=== PATIENT | female | born 1960 ===

== ENCOUNTER 2020-06-09 11:13 | Outpatient (REF) | payer MEDICARE, MEDICAID, SELFPAY ==
--- NOTE | 2020-06-09 11:21 | XR_ITS ---
EXAMINATION: XR HIP WITH PELVIS, RIGHT CLINICAL INFORMATION: Pain in right hip. COMPARISON: 03/05/2020, 01/28/2020. TECHNIQUE: Frontal view of the pelvis. Two views of the right hip. FINDINGS: PELVIS: There is a prosthetic proximal right femur. No change in position. No suspicious abnormality in the left hip. RIGHT HIP: There is indistinctness associated with a proximal femoral fracture. There is amorphous new bone formation associated with the region of the greater trochanter and subtrochanteric femur medially. No change in position of the fracture fragments. XR/XR hip RT w PEL1V IMPRESSION: Previous instrumentation. Healing fracture. The fracture lucency is still visualized.
== END 2020-06-09 11:14 | disposition home or self-care (01) ==
LOC: HO.HOSX 11:13
PROVIDERS: PCP Nurse Practitioner Pediatrics; Referring Provider Nurse Practitioner Pediatrics; Visit Provider Orthopaedic Surgery
DX: M25.551 Pain in right hip (principal); Z96.641 Presence of right artificial hip joint
CPT/HCPCS: 73502; 99212

== ENCOUNTER 2020-07-20 17:50 | Emergency (ER) | payer MEDICARE, MEDICAID, SELFPAY ==
[2020-07-20 17:57] VITALS: BP 140/69; PULSE 60; RESP 16; TEMP 36.8; O2SAT 98; BMI 29.0
--- NOTE | 2020-07-20 19:36 | US_ITS ---
EXAMINATION: US VENOUS ULTRASOUND WITH DOPPLER LOWER EXTREMITY, RIGHT CLINICAL INFORMATION: Postoperative pain and swelling COMPARISON: Right lower extremity ultrasound 12/11/2019 TECHNIQUE: Ultrasound of the deep veins is performed from the hip to the calf with compression sonography and color and pulse Doppler assessment. Spectral analysis with color-flow imaging is performed. FINDINGS: There is normal venous compression and respiratory variation and augmented flow. The visualized common femoral vein, superficial femoral vein, profunda femoral vein, popliteal vein, and the trifurcation region shows no evidence of deep venous thrombosis. There is no significant popliteal fossa cyst. The contralateral left common femoral vein appears normal with normal respiratory variation and flow. If the patient's symptoms persist, followup ultrasound in 5 days 7 days might be of value to exclude proximal propagation from a non-visualized calf vein. US/US venous duplex LE RT IMPRESSION: No DVT demonstrated in the right lower extremity.
[2020-07-20 20:46] VITALS: BP 146/65; PULSE 56; RESP 16
[2020-07-20] MEDS: 0.9 % Sodium Chloride 1,000 ML 999 ML IV (20:47)
[2020-07-20] MEDS: Morphine Sulfate 4 MG/ML CARTRIDGE IVPUSH (20:50)
[2020-07-20] MEDS: ondansetron HCL 4 MG/2 ML VIAL IVPUSH (20:50)
[2020-07-20 20:52] LABS: Basophils Percent Auto 0.2 % (0-2); Eosinophils Absolute Auto 0.1 X10*3/uL (0.0-0.4); Eosinophils Percent Auto 1.2 % (0-4); Hematocrit 32.3 % (37-47); Hemoglobin 10.4 g/dl (12.0-16.0); Imm Gran Abs Auto 0.02 X10*3/uL (0.00-0.03); Imm Gran Pct Auto 0.3 % (0.0-0.4); Lymphocytes Absolute Auto 1.6 X10*3/uL (1.2-4.9); Lymphocytes Percent Auto 24.5 % (20-40); MANUAL DIFF FLAG NO; Mean Corpuscular HGB Conc 32.2 g/dl (31.0-35.0); Mean Corpuscular Hemoglobin 31.8 pg (27.0-33.0); Mean Corpuscular Volume 98.8 fL (80-98); Mean Platelet Volume 8.5 fL (9.4-12.3); Monocytes Absolute Auto 0.6 X10*3/uL (0.1-1.2); Monocytes Percent Auto 9.6 % (2-11); Neutrophils Absolute Auto 4.2 X10*3/uL (2.0-8.3); Neutrophils Percent Auto 64.2 % (45-73); Platelet Count 253 X10*3/uL (160-400); Red Blood Count 3.27 X10*6/uL (4.20-5.50); Red Cell Distribution Width 13.5 % (11.0-16.0); White Blood Count 6.5 X10*3/uL (4.8-10.8)
[2020-07-20 20:58] LABS: INTERNATIONAL NORM RATIO 1.1 (0.9-1.1); Prothrombin Time 12.5 SEC (10.8-13.0)
[2020-07-20 21:01] LABS: Partial Thromboplastin Time 42.9 SEC (24.1-38.0)
[2020-07-20 21:20] LABS: Alanine Aminotransferase 26 U/L (0-31); Albumin Level 4.2 g/dL (3.5-5.0); Alkaline Phosphatase 95 U/L (39-117); Anion Gap 12 (12-20); Aspartate Amino Transferase 27 U/L (5-31); Bilirubin Total 0.2 mg/dL (0.0-1.0); Blood Urea Nitrogen 9 mg/dL (9-16); Calcium 8.7 mg/dL (8.4-10.2); Carbon Dioxide 29 mmol/L (22-29); Chloride 94 mmol/L (96-108); Creatinine Clr Calc Pharmacy 83.6; Estimated Glomerular Filt Rate > 60; Glucose Random 71 mg/dL (60-115); Potassium 4.1 mmol/l (3.3-5.1); Sodium 131 mmol/L (135-145); Total Protein 6.9 g/dL (6.5-8.0)
--- NOTE | 2020-07-20 21:45 | PC.NURSE ---
pt c/o of multiple complaints. pt question DVT/chronic lyme, chronic fever and chills. Pt medicated per emar with good effect.
--- NOTE | 2020-07-20 23:39 | ED.GENADULT ---
HPI - General Adult General Chief complaint: Extremity Problem Stated complaint: RT LEG PAIN,-TRAUMA Time Seen by Provider: 07/20/20 19:15 Source: patient Limitations: no limitations History of Present Illness HPI narrative: 5-year-old female who presents emergency department for evaluation right leg pain, swelling and weakness. The patient had a right femur fracture October 2019. She states that she has been having persistent pain in her right leg since the fracture. She states that her PCP was treating her for tramadol which does not seem to work anymore for pain. She states that over the last 1-1/2 months she has been doing her own physical therapy at home. Approximately 1 week prior, the pain in her right lower extremity became worse. She states the pain starts in her hip and radiates down her entire leg. She believes that her low right leg is swollen and has a pink coloration. She also states that she seen increased veins in her right leg. Patient also states that she has developed weakness in her right lower extremity. The patient contacted her PCP and was advised to go to the emergency department to rule out a DVT or infection is the cause of her symptoms. The patient also has a history of migraines. She states she has been having a migraine headache times weeks. The headache is located in the frontal area of her head, the headache is a constant, throbbing sensation which is 10/10 at its worst. She has had similar migraines in the past. The patient states that she often gets weakness in her lower extremities secondary to chronic MANGLE TENDER Lyme disease. 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 She denied fever, chills, chest pain, shortness of breath, nausea, vomiting or diarrhea. Related Data Allergies Allergy/AdvReac Type Severity Reaction Status Date / Time Sulfa (Sulfonamide Allergy Severe HIVES Unverified 03/18/20 19:34 Antibiotics) [SULFA (SULFONAMIDE ANTIBIOTICS)] influenza virus vaccine, Allergy Unknown LUMP X 1 HR Unverified 03/18/20 19:34 specific [FLU VACCINE] latex [LATEX] Allergy Unknown UNKNOWN Unverified 03/18/20 19:34 flu shot Allergy Unknown Uncoded 03/05/20 00:00 sulfa Allergy Unknown Uncoded 03/05/20 00:00 Review of Systems Review of Systems: Yes all other systems are reviewed and are negative Neurologic: Reports Abnormal speech present [facility] Past Medical History [facility] Narrative: Past medical history includes rheumatoid arthritis, seizures, MANGLE TENDER Lyme disease, Lyme myocarditis, ataxia. She denies tobacco, alcohol and drug use. Social History Social History Alcohol intake: never Smoked in Last 30 Days: No Use of substances other than those prescribed or required for medical reasons: No Advance Directives: No Advance Directives Information Provided: Yes Current occupational status: retired Current occupation: Right Physical Exam Vital Signs: Vital Signs: Last Vital Signs Temp 98.2 F 07/20/20 17:57 Pulse 56 07/20/20 20:46 Resp 16 07/20/20 20:46 BP 146/65 H 07/20/20 20:46 Pulse Ox 98 07/20/20 17:57 Body Mass Index 29.0 Const: General: cooperative Orientation/consciousness: oriented to person and oriented to place Limitations: no limitations HENMT: Head: Yes normal to inspection, Yes normocephalic and Yes atraumatic Ears: external ears normal General nose exam: Normal external nose present Face and sinus: Yes normal facial exam Mouth: Normal oral and palatal mucosa present Throat: Yes posterior oropharynx normal Eyes: Periorbital: periorbital findings normal Eyelids: Yes eyelids normal Conjunctivae: conjunctivae normal Sclerae: sclerae normal Corneas: corneas normal Pupils: Equal, round and reactive pupils present Direct Ophthalmoscopy: normal light reflex Neck: Neck: Yes full ROM, Yes no lymphadenopathy, Yes no meningeal signs, Yes trachea midline and Yes supple Chest: Chest palpation & inspection: normal inspection of the chest and normal palpation of entire chest wall Resp: Effort & Inspection: normal respiratory effort and able to speak in complete sentences Auscultation: clear to auscultation bilaterally Cardio: Rate: regular rate Rhythm: regular rhythm Heart sounds: S1 normal heart sound present, S2 normal heart sound present and no murmurs GI: Inspection: Yes normal to inspection Palpation (GI): Soft to palpation, nontender, no guarding, not rigid and No hepatosplenomegaly present : General: Yes no CVA tenderness Back/Spine/Pelvis: Back: no CVA tenderness Cervical Spine: normal cervical lordosis Thoracic/Lumbar Spine: thoracic and lumbar spine normal to inspection Skin: Lesions: no lesions Rashes: no rashes Wounds: no wounds Neuro: General: oriented to person, oriented to place and no meningeal signs Cranial nerves: Yes CN's II-XII intact bilaterally and Yes Equal, round and reactive pupils present Cognition (Neuro): normal cognition Speech: Abnormal speech present Motor exam (neuro): Other motor observations present (Unable to the left right lower extremity against gravity) Extrem: General: Yes normal to inspection and Yes other (Unable to lift right lower extremity against gravity) Psych: Appearance: well kempt Mental Status: mental status grossly normal Speech and movement: Normal speech and movement present Affect: normal affect Attitude: cooperative Thought process: Normal thought process present Thought content: Normal thought content present Course Course Course Narrative: 59 year-old female who presents emergency department for evaluation right lower extremity weakness, pain and swelling. Physical examination did reveal weakness of the right lower extremity. Initially ordered a CT scan of the brain however patient told the automation technologist that she had had a CT scan 1 week prior occlude to [facility] and did not want a 2nd CT scan. When I went to talk to the patient in the radiology department she was able to move her right lower extremity therefore the CT scan was canceled. Laboratory evaluation revealed mild anemia with an H&H of 10.4 and 32.3 otherwise was unremarkable. Doppler ultrasound of the right lower extremity revealed no evidence of DVT. I did discuss these findings with the patient. She did receive morphine and Zofran IV with improvement of her like pain and her migraine headache. She is feeling better. She was discharged home. She is advised to follow up with PCP for re-evaluation. Medical Decision Making Lab Data Result diagrams: 07/20/20 20:46 07/20/20 20:46 Labs: Lab Results 07/20/20 07/20/20 07/20/20 Range/Units 20:46 20:46 20:46 WBC 6.5 (4.8-10.8) X10*3/uL RBC 3.27 L (4.20-5.50) X10*6/uL Hgb 10.4 L (12.0-16.0) g/dl Hct 32.3 L (37-47) % MCV 98.8 H (80-98) fL MCH 31.8 (27.0-33.0) pg MCHC 32.2 (31.0-35.0) g/dl RDW 13.5 (11.0-16.0) % Plt Count 253 (160-400) X10*3/uL MPV 8.5 L (9.4-12.3) fL Immature Gran % (Auto) 0.3 (0.0-0.4) % Neut % (Auto) 64.2 (45-73) % Lymph % (Auto) 24.5 (20-40) % Rhea % (Auto) 9.6 (2-11) % Eos % (Auto) 1.2 (0-4) % Baso % (Auto) 0.2 (0-2) % Lymph # (Auto) 1.6 (1.2-4.9) X10*3/uL Rhea # (Auto) 0.6 (0.1-1.2) X10*3/uL Eos # (Auto) 0.1 (0.0-0.4) X10*3/uL Baso # (Auto) 0.0 (0.0-0.2) X10*3/uL Abs Immat Gran (auto) 0.02 (0.00-0.03) X10*3/uL Absolute Neuts (auto) 4.2 (2.0-8.3) X10*3/uL Absolute Nucleated RBC 0.000 (0.0-0.012) X10*3/uL Nucleated RBC % (auto) 0.0 (0.0-0.2) /100WBC PT 12.5 (10.8-13.0) SEC INR 1.1 (0.9-1.1) APTT 42.9 H (24.1-38.0) SEC Sodium 131 L (135-145) mmol/L Potassium 4.1 (3.3-5.1) mmol/l Chloride 94 L (96-108) mmol/L Carbon Dioxide 29 (22-29) mmol/L Anion Gap 12 (12-20) BUN 9 (9-16) mg/dL Creatinine 0.77 (0.5-1.4) mg/dL Estim Creat Clear Calc 83.6 Estimated GFR > 60 Random Glucose 71 (60-115) mg/dL Calcium 8.7 (8.4-10.2) mg/dL Total Bilirubin 0.2 (0.0-1.0) mg/dL AST 27 (5-31) U/L ALT 26 (0-31) U/L Alkaline Phosphatase 95 (39-117) U/L Total Protein 6.9 (6.5-8.0) g/dL Albumin 4.2 (3.5-5.0) g/dL Discharge Plan Discharge Clinical Impression: Acute pain of right lower extremity, Right leg weakness Migraine Qualifiers: Migraine type: unspecified Status migrainosus presence: without status migrainosus Intractability: not intractable Qualified Code(s): G43.909 - Migraine, unspecified, not intractable, without status migrainosus Patient Disposition: Home, Self-Care Additional Instructions: Your laboratory evaluation was unremarkable. The Doppler ultrasound of your right lower extremity revealed no evidence of a DVT (blood clot) which is reassuring. Based on your laboratory findings an your examination of your leg I do not think that you have an infection of your leg. Your symptoms are probably related to your previous fracture or your Lyme disease. Continue taking medications as prescribed by your doctor. Follow-up with your doctor in 2 days. Please return to the emergency department if your symptoms get worse or if you develop any symptoms that are concerning to you.
[2020-07-21 00:03] VITALS: BP 147/75; PULSE 49; RESP 16; O2SAT 100
== END 2020-07-21 01:15 | disposition home or self-care (01) ==
PROVIDERS: Emergency Provider Emergency Medicine Emergency Medical Services; PCP Family Medicine
DX: M79.661 Pain in right lower leg (principal); M62.81 Muscle weakness (generalized); G43.909 Migraine, unspecified, not intractable, without status migrainosus
CPT/HCPCS: 36415; 80053; 85025; 85610; 85730; 93971; 96361; 96374; 96375; 99284; J2270; J2405

== ENCOUNTER 2020-10-01 08:41 | Outpatient (REF) | payer MEDICARE, MEDICAID, SELFPAY ==
--- NOTE | ~2020-10-01 | XR_ITS ---
EXAMINATION: XR HIP, RIGHT CLINICAL INFORMATION: Right hip pain COMPARISON: Previous x-ray June 2020 TECHNIQUE: Two views of the right hip. FINDINGS: There is a right hip replacement satisfactory position. There is a periprosthetic right femoral intertrochanteric fracture that appears unchanged. Lucent fracture line is still seen. Bones of the pelvis are unremarkable. Soft tissues are unremarkable. XR/XR hip RT w PEL1V IMPRESSION: No change in right femoral intertrochanteric periprosthetic fracture.
== END 2020-10-01 08:42 | disposition home or self-care (01) ==
LOC: HO.HOSX 08:41
PROVIDERS: Visit Provider Orthopaedic Surgery
DX: M97.01XD Periprosthetic fracture around internal prosthetic right hip joint, subsequent encounter (principal); M25.551 Pain in right hip; Z96.641 Presence of right artificial hip joint
CPT/HCPCS: 73502; 99212

== ENCOUNTER → 2020-11-10 09:47 | Outpatient (BNVA) | payer MEDICARE, MEDICAID, SELFPAY | PROVIDERS: Visit Provider Orthopaedic Surgery ==

== ENCOUNTER 2021-12-12 19:54 | Emergency (ER) | payer MEDICARE, MEDICAID, SELFPAY ==
--- NOTE | ~2021-12-12 | XR_ITS ---
EXAMINATION: XR HIP, RIGHT CLINICAL INFORMATION: Hip injury COMPARISON: 10/01/2020 TECHNIQUE: Single view pelvis with 2 additional views of the right hip. FINDINGS: Again seen is a right total hip prosthesis in good position. The time of the prior study from 10/01/2020 and intertrochanteric fracture was seen, partially healing with still apparent fracture line. On the current study, the fracture line is no longer visible indicating interval healing. Incidental note made of degenerative changes L4-L5 with narrowing of the disc space on the right. XR/XR hip RT min 2V IMPRESSION: Right total hip replacement with healing intertrochanteric fracture.
[2021-12-12 20:07] VITALS: BP 124/74; PULSE 62; O2SAT 98
[2021-12-12 20:33] VITALS: BP 125/82; PULSE 59; RESP 18; TEMP 36.8; O2SAT 97; BMI 26.6
[2021-12-12 21:13] LABS: MANUAL DIFF FLAG NO
[2021-12-12 21:31] LABS: Basophils Percent Auto 0.2 % (0-2); Eosinophils Absolute Auto 0.1 X10*3/uL (0.0-0.4); Eosinophils Percent Auto 2.7 % (0-4); Hematocrit 33.4 % (37.0-47.0); Hemoglobin 10.9 g/dl (12.0-16.0); Imm Gran Abs Auto 0.01 X10*3/uL (0.00-0.03); Imm Gran Pct Auto 0.2 % (0.0-0.4); Lymphocytes Absolute Auto 1.5 X10*3/uL (1.2-4.9); Lymphocytes Percent Auto 30.5 % (20-40); Mean Corpuscular HGB Conc 32.6 g/dl (31.0-35.0); Mean Corpuscular Hemoglobin 32.4 pg (27.0-33.0); Mean Corpuscular Volume 99.4 fL (80.0-98.0); Monocytes Absolute Auto 0.6 X10*3/uL (0.1-1.2); Monocytes Percent Auto 11.2 % (2-11); Neutrophils Absolute Auto 2.7 x10*3/uL (2.0-8.3); Neutrophils Percent Auto 55.2 % (45-73); Platelet Count 224 X10*3/uL (160-400); Red Blood Count 3.36 X10*6/uL (4.20-5.50); Red Cell Distribution Width 13.2 % (11.0-16.0); White Blood Count 4.9 X10*3/uL (4.8-10.8)
[2021-12-12 21:32] LABS: Alanine Aminotransferase 27 U/L (0-31); Albumin Level 4.4 g/dL (3.5-5.0); Alkaline Phosphatase 65 U/L (39-117); Anion Gap 12 (12-20); Aspartate Amino Transferase 29 U/L (5-31); Bilirubin Total 0.4 mg/dL (0.0-1.0); Blood Urea Nitrogen 17 mg/dL (9-16); Calcium 9.1 mg/dL (8.4-10.2); Carbon Dioxide 24 mmol/L (22-29); Chloride 98 mmol/L (96-108); Creatinine Clr Calc Pharmacy 74.3; Estimated Glomerular Filt Rate > 60; Glucose Random 85 mg/dL (60-115); Potassium 4.3 mmol/L (3.3-5.1); Sodium 130 mmol/L (135-145); Total Protein 6.9 g/dL (6.5-8.0)
--- NOTE | 2021-12-12 23:42 | ED.LOWEXIN ---
HPI - Extremity Injury (Lower) General Chief Complaint: Extremity Injury, Lower Stated Complaint: HIP PAIN Time Seen by Provider: 12/12/21 23:42 Source: patient Mode of arrival: ambulatory Limitations: no limitations History of Present Illness HPI Narrative: Patient with hip and femur fractures for 2 years and she continues to fall. MD complaint: hip injury Onset (ago): year(s) Type of Injury: other (fall) Place: home Related Data Home Medications Medication Instructions Recorded Confirmed Lactobacillus rhamnosus GG 10 1 cap PO DAILY 10/05/20 billion cell capsule (Culturelle) acetaminophen 500 mg tablet 1,000 mg PO Q6H PRN 10/05/20 (Tylenol Extra Strength) amoxicillin 500 mg capsule 2,000 mg PO .COMPLEX 10/05/20 baclofen 10 mg tablet 10 mg PO DAILY 10/05/20 bisacodyl 5 mg tablet,delayed 5 mg PO BID 10/05/20 release bupropion HCl 300 mg 24 hr tablet, 300 mg PO QAM 10/05/20 extended release clonazepam 2 mg tablet 2 mg PO BID 10/05/20 cyclosporine 0.05 % eye drops in a 1 drp ophthalmic (eye) Q12H 10/05/20 dropperette (Restasis) diphenhydramine HCl 25 mg capsule 25 mg PO TID PRN 10/05/20 (Benadryl) duloxetine 60 mg capsule,delayed 60 mg PO DAILY 10/05/20 release etanercept 50 mg/mL (1 mL) 50 mg subcut QWEEK 10/05/20 subcutaneous syringe (Enbrel) ferrous sulfate 325 mg (65 mg 325 mg PO TID 10/05/20 iron) tablet folic acid 1 mg tablet 1 mg PO DAILY 10/05/20 gabapentin 300 mg capsule 300 mg PO TID 10/05/20 hydroxychloroquine 200 mg tablet 200 mg PO BID 10/05/20 hydroxyzine HCl 25 mg tablet 25 mg PO QID 10/05/20 ibuprofen 800 mg tablet 800 mg PO Q6H 10/05/20 loratadine 10 mg tablet (Claritin) 10 mg PO DAILY 10/05/20 methotrexate 2.5 mg/mL oral PO QWEEK 10/05/20 solution morphine ER 60 mg-naltrexone 2.4 cap PO BEDTIME 10/05/20 mg capsule, extend release, oral only naproxen sodium 220 mg capsule 220 mg PO Q12H 10/05/20 (Aleve) ondansetron 8 mg disintegrating 8 mg PO Q12H 10/05/20 tablet pilocarpine HCl 5 mg tablet 5 mg PO TID 10/05/20 prednisolone acetate (PF) 1 % eye 1 drp ophthalmic (eye) .COMPLEX 10/05/20 drops,suspension propranolol 40 mg/5 mL (8 mg/mL) 40 mg PO TID 10/05/20 oral solution sumatriptan succinate 100 mg tablet 100 mg PO Q2-4H PRN 10/05/20 thyroid (pork) 60 mg tablet 60 mg PO DAILY 10/05/20 ([place] Thyroid) zolpidem 10 mg tablet 10 mg PO BEDTIME PRN 10/05/20 Allergies Allergy/AdvReac Type Severity Reaction Status Date / Time Sulfa (Sulfonamide Allergy Severe HIVES Unverified 11/10/20 14:25 Antibiotics) [SULFA (SULFONAMIDE ANTIBIOTICS)] influenza virus vaccine, Allergy Unknown LUMP X 1 HR Unverified 11/10/20 14:25 specific [FLU VACCINE] latex [LATEX] Allergy Unknown UNKNOWN Unverified 11/10/20 14:25 mold Allergy difficulty Verified 11/10/20 14:25 breathing Review of Systems Constitutional: Constitutional: Reports no additional constitutional complaints Eyes: Eyes: Reports no additional eye complaints ENT: Denies dizziness Cardiovascular: Cardiovascular: Reports no additional cardiovascular complaints Respiratory: Respiratory: Reports as per HPI Gastrointestinal: Gastrointestinal: Reports no additional gastrointestinal complaints Genitourinary: Genitourinary: Reports no additional female genitourinary complaints Musculoskeletal: Musculoskeletal: Reports no additional musculoskeletal complaints Integumentary/Breasts: Skin/Breast: Denies rash Neurologic: Reports system reviewed and no additional complaints, except as documented, Denies dizziness and Denies Sensory deficit (Neuro) Psychiatric: Psychiatric: Denies anxiety PMFSH Past Medical History Medical History ADHD AV heart block Brain bleed Cervical spondylolysis Chronic fatigue Chronic pain Corneal disease Degenerative disc disease Dry eye syndrome Electrolyte imbalance Fibromyalgia [place]stone HLA B27 (HLA B27 positive) Hypertension Immunosuppressed status Insomnia Irregular heartbeat Lyme carditis Lyme disease Migraines Mitral valve prolapse Myopia Neuritis Neurobartonellosis Optic neuritis Osteoarthritis Osteoporosis Palpitations Photophobia Psoriasis PTSD (post-traumatic stress disorder) Rheumatoid arthritis Seborrheic dermatitis Seizure disorder Sinus bradycardia Syncope TIA (transient ischemic attack) TMJ (dislocation of temporomandibular joint) Traumatic brain injury Social History Social History Alcohol intake: never Current occupational status: retired Current occupation: Right Physical Exam Vital Signs: Vital Signs: Last Vital Signs Temp 98.3 F 12/12/21 20:33 Pulse 59 12/12/21 20:33 Resp 18 12/12/21 20:33 BP 125/82 12/12/21 20:33 Pulse Ox 97 12/12/21 20:33 O2 Del Method 12/12/21 20:33 BMI result Body Mass Index 26.6 Skin: Other: bruising to right hip and abrasions, no evidence of infection Neuro: Sensory Exam: No Sensory deficit (Neuro) Psych: Other: bizarre affect Course Reevaluation(s) Reevaluation #1: Patient with more anxiety than actual injury, has a contusion to the hip will dc home with follow up Time: 23:49 MDM - Extremity Injury (Lower) Lab Data Result diagrams: 12/12/21 21:04 12/12/21 21:04 Labs: Lab Results 12/12/21 12/12/21 Range/Units 21:04 21:04 WBC 4.9 (4.8-10.8) X10*3/uL RBC 3.36 L (4.20-5.50) X10*6/uL Hgb 10.9 L (12.0-16.0) g/dl Hct 33.4 L (37.0-47.0) % MCV 99.4 H (80.0-98.0) fL MCH 32.4 (27.0-33.0) pg MCHC 32.6 (31.0-35.0) g/dl RDW 13.2 (11.0-16.0) % Plt Count 224 (160-400) X10*3/uL MPV 9.0 L (9.4-12.3) fL Immature Gran % (Auto) 0.2 (0.0-0.4) % Neut % (Auto) 55.2 (45-73) % Lymph % (Auto) 30.5 (20-40) % Coleman % (Auto) 11.2 H (2-11) % Eos % (Auto) 2.7 (0-4) % Baso % (Auto) 0.2 (0-2) % Lymph # (Auto) 1.5 (1.2-4.9) X10*3/uL Coleman # (Auto) 0.6 (0.1-1.2) X10*3/uL Eos # (Auto) 0.1 (0.0-0.4) X10*3/uL Baso # (Auto) 0.0 (0.0-0.2) X10*3/uL Abs Immat Gran (auto) 0.01 (0.00-0.03) X10*3/uL Absolute Neuts (auto) 2.7 (2.0-8.3) x10*3/uL Absolute Nucleated RBC 0.000 (0.0-0.012) X10*3/uL Nucleated RBC % (auto) 0.0 (0.0-0.2) /100WBC Sodium 130 L (135-145) mmol/L Potassium 4.3 (3.3-5.1) mmol/L Chloride 98 (96-108) mmol/L Carbon Dioxide 24 (22-29) mmol/L Anion Gap 12 (12-20) BUN 17 H (9-16) mg/dL Creatinine 0.84 (0.5-1.4) mg/dL Estim Creat Clear Calc 74.3 Estimated GFR > 60 Random Glucose 85 (60-115) mg/dL Calcium 9.1 (8.4-10.2) mg/dL Total Bilirubin 0.4 (0.0-1.0) mg/dL AST 29 (5-31) U/L ALT 27 (0-31) U/L Alkaline Phosphatase 65 D (39-117) U/L Total Protein 6.9 (6.5-8.0) g/dL Albumin 4.4 (3.5-5.0) g/dL Imaging Data hip xray: Radiologist's impression: FINDINGS: Again seen is a right total hip prosthesis in good position. The time of the prior study from 10/01/2020 and intertrochanteric fracture was seen, partially healing with still apparent fracture line. On the current study, the fracture line is no longer visible indicating interval healing. Incidental note made of degenerative changes L4-L5 with narrowing of the disc space on the right.? XR/XR hip RT min 2V IMPRESSION: Right total hip replacement with healing intertrochanteric fracture. ? Discharge Plan Discharge Clinical Impression: Contusion of hip Patient Disposition: Home, Self-Care Instructions: Hip Contusion (ED) Prescriptions: No [facility] thyroid (pork) [[place] Thyroid] 60 mg tablet 60 mg PO DAILY baclofen 10 mg tablet 10 mg PO DAILY bisacodyl 5 mg tablet,delayed release (DR/EC) 5 mg PO BID bupropion HCl 300 mg tablet extended release 24 hr 300 mg PO QAM clonazepam 2 mg tablet 2 mg PO BID duloxetine 60 mg capsule,delayed release(DR/EC) 60 mg PO DAILY folic acid 1 mg tablet 1 mg PO DAILY gabapentin 300 mg capsule 300 mg PO TID hydroxychloroquine 200 mg tablet 200 mg PO BID morphine-naltrexone 60-2.4 mg capsule,oral only,ext.rel aissatou PO BEDTIME methotrexate 2.5 mg/mL solution PO QWEEK pilocarpine HCl 5 mg tablet 5 mg PO TID propranolol 40 mg/5 mL (8 mg/mL) solution 40 mg PO TID Restasis 0.05 % dropperette 1 drp ophthalmic (eye) Q12H zolpidem 10 mg tablet 10 mg PO BEDTIME PRN Enbrel 50 mg/mL (1 mL) syringe 50 mg subcut QWEEK amoxicillin 500 mg capsule 2,000 mg PO .COMPLEX Rx Instructions: 2,000 mg PO 4 Hours prior to dental work; hydroxyzine HCl 25 mg tablet 25 mg PO QID Rx Instructions: Take 4x daily when rash flairs up prednisolone acetate (PF) 1 % drops,suspension 1 drp ophthalmic (eye) .COMPLEX Rx Instructions: 1 drp ophthalmic (eye) 1-4 eye drops daily; sumatriptan succinate 100 mg tablet 100 mg PO Q2-4H PRN Rx Instructions: do not exceed 2 doses per 24 hrs ondansetron 8 mg tablet,disintegrating 8 mg PO Q12H acetaminophen [Tylenol Extra Strength] 500 mg tablet 1,000 mg PO Q6H PRN naproxen sodium [Aleve] 220 mg capsule 220 mg PO Q12H diphenhydramine HCl [Benadryl] 25 mg capsule 25 mg PO TID PRN loratadine [Claritin] 10 mg tablet 10 mg PO DAILY Culturelle 10 billion cell capsule 1 cap PO DAILY ferrous sulfate 325 mg (65 mg iron) tablet 325 mg PO TID ibuprofen 800 mg tablet 800 mg PO Q6H Referrals: Physician,Nonstaff [Physician] - 1 week
--- NOTE | 2021-12-13 00:05 | PC.NURSE ---
Pt provided with food/drink per request.
--- NOTE | 2021-12-13 00:34 | PC.NURSE ---
call out to [facility] @[id number], spoke to claude. [facility] may not have any trucks to transfer patient back home, will be expecting a call back with update.
--- NOTE | 2021-12-13 00:51 | PC.NURSE ---
I called Eyad at [facility] at 0050 for an update and he attempted to pass on to [facility] and no ambulance services are available to transfer patient back home
--- NOTE | 2021-12-13 03:10 | PC.NURSE ---
Pt moved into [facility] per pt request so she can rest for the evening while she awaits EMS transport home. After this RN moved pt into [facility], pt requested to use the bathroom. This RN obtaining a walker to safely assist pt into the bathroom. As pt stood up from the bed, pt reports that her right leg suddenly gave out. Pt toppling onto this RN who was able to stop pt from hitting the floor. This RN grabbed pt by the waistband to assist her back into bed to prevent her from falling. After this RN assisted pt onto bed, pt stated to this RN I'd appreciate it if you weren't so rough with me! This RN explaining to pt the importance of preventing falls and ensuring pt safetly. Pt then assisted into the bathroom with the assistance of a wheelchair and 2 other staff members. This RN then consulting with MD regarding plan for DC. Per MD pt has been reporting same complaint for 3 years and does not require PT/CM.
== END 2021-12-13 08:48 | disposition home or self-care (01) ==
PROVIDERS: Emergency Provider Emergency Medicine; PCP Family Medicine
DX: S70.01XA Contusion of right hip, initial encounter (principal); W19.XXXA Unspecified fall, initial encounter; Z91.81 History of falling; Y93.9 Activity, unspecified; Y92.017 Garden or yard in single-family (private) house as the place of occurrence of the external cause; Y99.9 Unspecified external cause status; Z96.641 Presence of right artificial hip joint
CPT/HCPCS: 36415; 73502; 80053; 85025; 87040; 99282; 99283

== ENCOUNTER 2022-11-14 21:10 | Emergency (ER) | payer OTHER, SELFPAY ==
--- NOTE | ~2022-11-14 | XR_ITS ---
EXAMINATION: XR HIP, RIGHT CLINICAL INFORMATION: Right hip pain after CT today COMPARISON: Right hip 12/12/2021 TECHNIQUE: Two views of the right hip. FINDINGS: There is a total right hip arthroplasty with interval removal of right acetabular nail and likely replacement of the acetabular prosthesis. The femoral prosthesis is unchanged. No periprosthetic loosening or fracture visualized XR/XR hip RT w PEL1V IMPRESSION: Total right hip arthroplasty with interval removal of right acetabular nail and change of a acetabular cup. No periprosthetic loosening or fracture seen.
[2022-11-14 21:18] VITALS: BP 104/70; BP 114/61; PULSE 71; PULSE 80; RESP 18; TEMP 37.3; O2SAT 94; O2SAT 95; BMI 26.9
--- OUTSIDE RECORDS SUMMARY | 2022-11-14 22:19 | XMS_ITS | Continuity of Care Document ---
Author Name Unknown Organization [facility] Dimitrios diane Address [address] [place] [address] [address] [place] [address]- Care Team Providers Care Resident Manager Name Role Phone Carmella Torres NP Primary Care Physician Encounter [facility] [place] Date(s): 01/14/21 - 02/13/21 [facility] [address] [place] [address]- Attending Physician: Admtr, [id number] Admitting Physician: Admtr, Ar8 Referring Physician: Admtr, Ar8 Allergies, Adverse Reactions, Alerts Substance Reaction Severity Status sulfa drugs Active Latex Active Mold Active influenza virus vaccine, inactivated Active Medications acetaminophen/butalbital/caffeine 300 mg-50 mg-40 mg oral capsule 1 capsule, By Mouth, Every 4 hours, MAY REPLACE WITH TABLETS PER DR ESPAÑA. NOT TO EXCEED MORE THAN 3 CAPSULES QD., # 30 capsule, 0 Refills, Maintenance, 12/17/17 14:12:07 EDT, 1 capsule By Mouth Every 4 hours,Instr:MAY REPLACE WITH TABLETS PER DR KERR... Start Date: 12/17/17 Status: Ordered [place] Thyroid See Instructions, 105mg daily, 0 Refills, Maintenance, 08/15/16 9:26:36 Start Date: 08/15/16 Status: Ordered buPROPion 150 mg/24 hours (XL) oral tablet, extended release 1 tablet = 150 mg, By Mouth, Every 24 hours, TAKE WITH BUPROPRION 300 MG XL QD PER DR ESPAÑA, # 90 tablet, 0 Refills, Maintenance, 12/17/17 14:12:28 EDT, ER Tablet, 1 tablet By Mouth Every 24 hours,Instr:TAKE WITH BUPROPRION 300 MG XL QD PER DR ESPAÑA Start Date: 12/17/17 Status: Ordered clonazePAM 1 mg oral tablet See Instructions, 1 tablet By Mouth at mid day, # 28 tablet, 0 Refills, Maintenance, 11/29/17 10:47:04 EDT Start Date: 11/29/17 Status: Ordered clonazePAM 2 mg oral tablet 1 tablet = 2 mg, By Mouth, 3 times a day, FAX [phone] THIS IS THE FINAL REFILL. FUTURE REFILLSMUST BE OBTAINED BY YOUR NEW PCP PER DR ESPAÑA, # 90 tablet, 0 Refills, Maintenance, 01/29/18 11:44:29 EDT Start Date: 01/29/18 Status: Ordered Cymbalta 60 mg oral enteric coated capsule 1 capsule = 60 mg, By Mouth, Daily, # 30 capsule, 0 Refills, Maintenance, 08/15/16 9:29:28, EC Capsule Start Date: 08/15/16 Status: Ordered Docusate See Instructions, 600mg at bedtime, 0 Refills, Maintenance, 08/15/16 9:32:02 Start Date: 08/15/16 Status: Ordered Fioricet oral capsule 2 capsule, By Mouth, Every 4 hours, PRN as needed, not to exceed 6 capsules/day, # 30 capsule, 0 Refills, Maintenance, 08/15/16 9:42:04, Capsule Start Date: 08/15/16 Status: Ordered Flonase 50 mcg/inh nasal spray 2 sprays, Nares, Both, Daily, # 16 Gm, 5 Refills, Maintenance, 12/17/17 13:59:25 EDT, [place], 2 sprays Nares, Both Daily Start Date: 12/17/17 Status: Ordered ibuprofen 600 mg oral tablet 1 tablet = 600 mg, By Mouth, 4 times a day, # 120 tablet, 0 Refills, Maintenance, 07/25/13 15:35:42, Tablet Start Date: 07/25/13 Status: Ordered Ketamine/ketoprofen/bupivicaine/prilocaine gel Ketamine/ketoprofen/bupivicaine/prilocaine gel, See Instructions, # 60 Gm, Refills 0, Tot. Refills 0, Maintenance, apply 1-2 cc to painful areas 3-4 times daily prn pain, 08/07/13 14:50:34, Compound Start Date: 08/07/13 Status: Ordered Neurontin 300 mg oral capsule 300 mg, 1, capsule, By Mouth, 3 times a day, # 270 capsule, Refills 0, Maintenance, 08/15/16 9:27:43 Start Date: 08/15/16 Status: Ordered ofloxacin 0.3% otic solution See Instructions, 5 drops 2 times a day in affected ear(s), # 5 mL, Refills 0, Tot. Refills 0, Maintenance, 11/15/17 13:06:46 EDT, Instructions Replace Required Details, Route to Pharmacy Electronically, [id number], [facility]/pharm... Start Date: 11/15/17 Status: Ordered propranolol 20 mg oral tablet 20 mg, 1, tablet, By Mouth, 3 times a day, PRN INCREASED DOSE PER DR ESPAÑA, # 270 tablet, Refills 0, Tot. Refills 0, Maintenance, 12/17/17 14:10:02 EDT, Route to Pharmacy Electronically, [id number], [facility]/pharmacy #[id number] Start Date: 12/17/17 Status: Ordered Restasis 1 drops, Eyes, Both, Every 12 hours, 0 Refills, Maintenance, 08/15/16 9:35:27 Start Date: 08/15/16 Status: Ordered Ritalin 20 mg oral tablet 1 tablet = 20 mg, By Mouth, 2 times a day, twice daily, 0 Refills, Maintenance, 10/10/16 15:17:50, Tablet Start Date: 10/10/16 Status: Ordered Senokot = 8.6 mg, By Mouth, Daily at bedtime, 0 Refills, Maintenance, 08/15/16 9:40:57 Start Date: 08/15/16 Status: Ordered Walker with seat, wheels, CRYSTAL 99, R26.81 Walker with seat, wheels, CRYSTAL 99, R26.81, See Instructions, PRN Walker, Seat, Wheels CRYSTAL 99, R26.81, # 1 each, Refills 0, Tot. Refills 0, Maintenance, Walker, Seat, Wheels, 12/17/17 13:52:03 EDT, Compound Start Date: 12/17/17 Status: Ordered Wellbutrin XL 300 mg/24 hours oral tablet, extended release 1 tablet = 300 mg, By Mouth, Daily, TAKE WITH BUPROPRION 150 MG XL QD PER DR ESPAÑA, # 90 tablet, 0 Refills, Maintenance, 12/17/17 14:09:47 EDT, ER Tablet Start Date: 12/17/17 Status: Ordered Zofran 8 mg oral tablet 1 tablet = 8 mg, By Mouth, Daily, # 3 tablet, 0 Refills, Maintenance, 08/15/16 9:41:43, Tablet Start Date: 08/15/16 Status: Ordered zolpidem 10 mg oral tablet 1 tablet = 10 mg, By Mouth, Daily at bedtime, PRN for sleep, # 28 tablet, 0 Refills, Maintenance, 10/16/17 15:59:56 EDT, Tablet Start Date: 10/16/17 Status: Ordered Problem List Condition Effective Dates Status Health Status Inform ant Babesiosis(Confirmed) Active Depression(Confirmed) Active Former smoker(Confirmed) Active H/O fracture of rib(Confirmed) Active Linda's thyroiditis(Confirmed) Active Insomnia(Confirmed) Active Irritable bowel syndrome(Confirmed) Active Lyme disease(Confirmed) Active Migraine(Confirmed) Active Post concussive syndrome(Confirmed) Active Unsteady gait(Confirmed) Active Social History Social History Type Response Smoking Status Former smoker; Other : smoked 1 ppd x's 8 yrs and quit smoking in 1989; entered on: 10/10/16 Sex
--- OUTSIDE RECORDS SUMMARY | 2022-11-14 22:19 | XMS_ITS | Continuity of Care Document ---
Author Name Unknown Organization [facility] Dimitrios diane Address [address] [place] [address] [address] [place] [address]- Care Team Providers Care Sales Facilitator Name Role Phone Melissa DUNLAP, Carmella Primary Care Physician Encounter [facility] [place] Date(s): 10/29/20 - 02/13/21 [facility] [address] [place] [address]- Attending Physician: Alex FULTON, Luan Kerr Referring Physician: Michelle FULTON, Matti Connell Allergies, Adverse Reactions, Alerts Substance Reaction Severity [...] DR KERR... Start Date: 12/17/17 Status: Ordered [place] Thyroid See Instructions, 105mg daily, 0 Refills, [...] By Mouth, 3 times a day, FAX [phone] THIS IS THE FINAL REFILL. FUTURE REFILLSMUST [...] Gm, 5 Refills, Maintenance, 12/17/17 13:59:25 EDT, [place], 2 sprays Nares, Both Daily Start Date: [...] Replace Required Details, Route to Pharmacy Electronically, [id number], [facility]/pharm... Start Date: 11/15/17 Status: Ordered propranolol 20 mg oral tablet 20 mg, 1, tablet, By Mouth, 3 times a day, PRN INCREASED DOSE PER DR ESPAÑA, # 270 tablet, Refills 0, Tot. Refills 0, Maintenance, 12/17/17 14:10:02 EDT, Route to Pharmacy Electronically, [id number], [facility]/pharmacy #[id number] Start Date: 12/17/17 Status: Ordered Restasis [...]
--- OUTSIDE RECORDS SUMMARY | 2022-11-14 22:19 | XMS_ITS | Continuity of Care Document ---
Author Name Unknown Organization [facility] Address [address] [facility], [address], [address] [place] [address]- Care Team Providers Care Toy Parts Former Supervisor Name Role Phone Carmella Torres NP Primary Care Physician [phone] [facility] [place] [place] Date(s): 05/18/20 - 06/17/20 [facility] [address], [address], [address] [place] [address]- Allergies, Adverse Reactions, Alerts Substance Reaction Severity [...] DR KERR... Start Date: 12/17/17 Status: Ordered [place] Thyroid See Instructions, 105mg daily, 0 Refills, [...] By Mouth, 3 times a day, FAX [phone] THIS IS THE FINAL REFILL. FUTURE REFILLSMUST [...] Gm, 5 Refills, Maintenance, 12/17/17 13:59:25 EDT, [place], 2 sprays Nares, Both Daily Start Date: [...] Replace Required Details, Route to Pharmacy Electronically, [id number], [facility]/pharm... Start Date: 11/15/17 Status: Ordered propranolol 20 mg oral tablet 20 mg, 1, tablet, By Mouth, 3 times a day, PRN INCREASED DOSE PER DR ESPAÑA, # 270 tablet, Refills 0, Tot. Refills 0, Maintenance, 12/17/17 14:10:02 EDT, Route to Pharmacy Electronically, [id number], [facility]/pharmacy #[id number] Start Date: 12/17/17 Status: Ordered Restasis [...] BUPROPRION 150 MG XL QD PER DR RYTER, # 90 tablet, 0 Refills, Maintenance, 12/17/17 [...]
--- OUTSIDE RECORDS SUMMARY | 2022-11-14 22:19 | XMS_ITS | Continuity of Care Document ---
Author Name Unknown Organization [facility] Address [address] [place] [address]- Care Team Providers Care Director Building Name Role Phone Melissa DUNLAP, Carmella Primary Care Physician [place] [facility] [place] [id number] Date(s): 05/15/20 - 06/20/[address] [address] Attending Physician: Thi Aly Admitting Physician: Thi Aly Referring Physician: Thi Aly Allergies, Adverse Reactions, Alerts Substance Reaction Severity [...] DR KERR... Start Date: 12/17/17 Status: Ordered [place] Thyroid See Instructions, 105mg daily, 0 Refills, [...] By Mouth, 3 times a day, FAX [phone] THIS IS THE FINAL REFILL. FUTURE REFILLSMUST [...] Gm, 5 Refills, Maintenance, 12/17/17 13:59:25 EDT, [place], 2 sprays Nares, Both Daily Start Date: [...] Replace Required Details, Route to Pharmacy Electronically, [id number], [facility]/pharm... Start Date: 11/15/17 Status: Ordered propranolol 20 mg oral tablet 20 mg, 1, tablet, By Mouth, 3 times a day, PRN INCREASED DOSE PER DR ESPAÑA, # 270 tablet, Refills 0, Tot. Refills 0, Maintenance, 12/17/17 14:10:02 EDT, Route to Pharmacy Electronically, [id number], [facility]/pharmacy #[id number] Start Date: 12/17/17 Status: Ordered [...]
[2022-11-14 23:37] VITALS: BP 106/47; PULSE 71; RESP 14; TEMP 36.7; O2SAT 95
--- NOTE | 2022-11-15 00:39 | ED_ITS ---
HPI - Extremity Problem General Chief complaint: Extremity Problem Stated complaint: hip pain Time Seen by Provider: 11/15/22 00:32 Source: patient Mode of arrival: EMS Limitations: no limitations History of Present Illness HPI Narrative: Patient comes to the emergency room complaining of right hip pain. Patient states that she was in rehab working with physical therapy, patient had a sudden onset pain in the right hip. Patient had a right hip replacement on 11/01/2022. Patient denies falling or having any other in Related Data Home Medications Medication Instructions Recorded Confirmed Lactobacillus rhamnosus GG 10 1 cap PO DAILY 10/05/20 billion cell capsule (Culturelle) acetaminophen 500 mg tablet 1,000 mg PO Q6H PRN 10/05/20 (Tylenol Extra Strength) amoxicillin 500 mg capsule 2,000 mg PO .COMPLEX 10/05/20 baclofen 10 mg tablet 10 mg PO DAILY 10/05/20 bisacodyl 5 mg tablet,delayed 5 mg PO BID 10/05/20 release bupropion HCl 300 mg 24 hr tablet, 300 mg PO QAM 10/05/20 extended release clonazepam 2 mg tablet 2 mg PO BID 10/05/20 cyclosporine 0.05 % eye drops in a 1 drp ophthalmic (eye) Q12H 10/05/20 dropperette (Restasis) diphenhydramine HCl 25 mg capsule 25 mg PO TID PRN 10/05/20 (Benadryl) duloxetine 60 mg capsule,delayed 60 mg PO DAILY 10/05/20 release etanercept 50 mg/mL (1 mL) 50 mg subcut QWEEK 10/05/20 subcutaneous syringe (Enbrel) ferrous sulfate 325 mg (65 mg 325 mg PO TID 10/05/20 iron) tablet folic acid 1 mg tablet 1 mg PO DAILY 10/05/20 gabapentin 300 mg capsule 300 mg PO TID 10/05/20 hydroxychloroquine 200 mg tablet 200 mg PO BID 10/05/20 hydroxyzine HCl 25 mg tablet 25 mg PO QID 10/05/20 ibuprofen 800 mg tablet 800 mg PO Q6H 10/05/20 loratadine 10 mg tablet (Claritin) 10 mg PO DAILY 10/05/20 methotrexate 2.5 mg/mL oral PO QWEEK 10/05/20 solution morphine ER 60 mg-naltrexone 2.4 cap PO BEDTIME 04/06/21 mg capsule, extend release, oral only naproxen sodium 220 mg capsule 220 mg PO Q12H 10/05/20 (Aleve) ondansetron 8 mg disintegrating 8 mg PO Q12H 10/05/20 tablet pilocarpine HCl 5 mg tablet 5 mg PO TID 10/05/20 prednisolone acetate (PF) 1 % eye 1 drp ophthalmic (eye) .COMPLEX 10/05/20 drops,suspension propranolol 40 mg/5 mL (8 mg/mL) 40 mg PO TID 10/05/20 oral solution sumatriptan succinate 100 mg tablet 100 mg PO Q2-4H PRN 10/05/20 thyroid (pork) 60 mg tablet 60 mg PO DAILY 10/05/20 ([place] Thyroid) zolpidem 10 mg tablet 10 mg PO BEDTIME PRN 10/05/20 Allergies Allergy/AdvReac Type Severity Reaction Status Date / Time Sulfa (Sulfonamide Allergy Severe HIVES Unverified 11/10/20 14:25 Antibiotics) [SULFA (SULFONAMIDE ANTIBIOTICS)] influenza virus vaccine, Allergy Unknown LUMP X 1 HR Unverified 11/10/20 14:25 specific [FLU VACCINE] latex [LATEX] Allergy Unknown UNKNOWN Unverified 11/10/20 14:25 mold Allergy difficulty Verified 11/10/20 14:25 breathing Review of Systems Review of Systems: Constitutional : No Weight loss, No Fever, No Chills, No Night Sweats, No Fatigue, No Malaise ENT/Mouth : No Hearing loss, No Ear Pain, No Nasal Congestion, No Sinus Pain, No Hoarseness, No sore throat, No Rhinorrhea, No Swallowing Difficulty Eyes: No Eye Pain, No Swelling, No Redness, No Foreign Body, No Discharge, No Vision Changes Cardiovascular : No Chest Pain, No SOB, No Dyspnea on Exertion, No Orthopnea, No Edema, No Palpitations Respiratory : No Cough, No Sputum, No Wheezing, No Smoke Exposure, No Dyspnea Gastrointestinal : No Nausea, No Vomiting, No Diarrhea, No Constipation, No abdominal Pain, No Hematochezia, No Melena Genitourinary : no irregular bleeding, No Dysuria, No Urinary Frequency, No Hematuria, No Urinary Incontinence, No Urgency, No Flank Pain, No Urinary Flow Changes, No Hesitancy Musculoskeletal : Complaining of right hip pain, no Myalgias, No Joint Swelling Skin : No Skin Lesions, No rash Neuro : No Weakness, No Numbness, No Paresthesias, No Loss of Consciousness, No Dizziness, No Headache Psych : No Anxiety/Panic, No Depression, No SI/HI/AH/VH, No Social Issues, Heme/Lymph: No Bruising, No Bleeding,No Lymphadenopathy Endocrine : No Polyuria, No Polydipsia, No Temperature Intolerance [facility] Past Medical History Medical History ADHD AV heart block Brain bleed Cervical spondylolysis Chronic fatigue Chronic pain Corneal disease Degenerative disc disease Dry eye syndrome Electrolyte imbalance Fibromyalgia Gallstone HLA B27 (HLA B27 positive) Hypertension Immunosuppressed status Insomnia Irregular heartbeat Lyme carditis Lyme disease Migraines Mitral valve prolapse Myopia Neuritis Neurobartonellosis Optic neuritis Osteoarthritis Osteoporosis Palpitations Photophobia Psoriasis PTSD (post-traumatic stress disorder) Rheumatoid arthritis Seborrheic dermatitis Seizure disorder Sinus bradycardia Syncope TIA (transient ischemic attack) TMJ (dislocation of temporomandibular joint) Traumatic brain injury Social History Social History Alcohol intake: never Advance Directives: No Advance Directives Information Provided: No Current occupational status: retired Current occupation: Right Physical Exam Vital Signs: Vital Signs: Last Vital Signs Temp 98.0 F 11/14/22 23:37 Pulse 71 11/14/22 23:37 Resp 14 11/14/22 23:37 BP 106/47 L 11/14/22 23:37 Pulse Ox 95 11/14/22 23:37 O2 Del Method Room Air 11/14/22 23:37 BMI result Body Mass Index 26.9 Const: Other: Appearance: Alert. Oriented X3. No acute distress. Eyes: Pupils equal, round and reactive to light. ENT: Pharynx normal. Neck: Normal inspection. Neck supple. No lymph nodes noted. No crepitus CVS: Normal heart rate and rhythm. Pulses normal. Normal S1 and S2 Respiratory: No respiratory distress. Breath sounds normal. No Wheezing. No rales Abdomen: Soft and nontender. No rigidity. No distention. Skin: Skin warm and dry. Normal skin color. Normal skin turgor. Healing well, no signs of cellulitis over the surgical site Extremities: No lower extremity edema. No Lacerations. No Rash. Patient able to flex and extend the hip on the right side, near normal range of motion (passive movement) Neuro: Oriented X 3. No motor deficit. No sensory deficit. Moving all ex tremities. No slurred speech. CN 2 through 12 grossly intact Psych: calm, cooperative, normal affect Medical Decision Making Medical Decision Making MDM Narrative: -my interpretation of x-rays of the hip and pelvis: No dislocation, good alignment of total right hip arthroplasty -patient was given 1 dose of IM morphine Differential Diagnosis Differential Diagnoses: The differential diagnosis associated with the presentation includes (Musculoskeletal pain, fracture, dislocation of the right hip) Radiology Impression Discussion of test interpretation with radiology: I have reviewed the radiologist's reading. Radiologist Impression: FINDINGS: There is a total right hip arthroplasty with interval removal of right acetabular nail and likely replacement of the acetabular prosthesis. The femoral prosthesis is unchanged. No periprosthetic loosening or fracture visualized? XR/XR hip RT w PEL1V IMPRESSION: Total right hip arthroplasty with interval removal of right acetabular nail and change of a acetabular cup. No periprosthetic loosening or fracture seen. Discharge Plan Discharge Clinical Impression: Acute pain of right hip Patient Disposition: Home, Self-Care Instructions: Hip Pain (ED) Additional Instructions: Please follow-up with your primary care physician tomorrow. If you have any worsening or new symptoms, please return to the emergency room or call 911 Prescriptions: No Action thyroid (pork) [[place] Thyroid] 60 mg tablet 60 mg PO DAILY baclofen 10 mg tablet 10 mg PO DAILY bisacodyl 5 mg tablet,delayed release (DR/EC) 5 mg PO BID bupropion HCl 300 mg tablet extended release 24 hr 300 mg PO QAM clonazepam 2 mg tablet 2 mg PO BID duloxetine 60 mg capsule,delayed release(DR/EC) 60 mg PO DAILY folic acid 1 mg tablet 1 mg PO DAILY gabapentin 300 mg capsule 300 mg PO TID hydroxychloroquine 200 mg tablet 200 mg PO BID morphine-naltrexone 60-2.4 mg capsule,oral only,ext.rel aissatou PO BEDTIME methotrexate 2.5 mg/mL solution PO QWEEK pilocarpine HCl 5 mg tablet 5 mg PO TID propranolol 40 mg/5 mL (8 mg/mL) solution 40 mg PO TID Restasis 0.05 % dropperette 1 drp ophthalmic (eye) Q12H zolpidem 10 mg tablet 10 mg PO BEDTIME PRN Enbrel 50 mg/mL (1 mL) syringe 50 mg subcut QWEEK amoxicillin 500 mg capsule 2,000 mg PO .COMPLEX Rx Instructions: 2,000 mg PO 4 Hours prior to dental work; hydroxyzine HCl 25 mg tablet 25 mg PO QID Rx Instructions: Take 4x daily when rash flairs up prednisolone acetate (PF) 1 % drops,suspension 1 drp ophthalmic (eye) .COMPLEX Rx Instructions: 1 drp ophthalmic (eye) 1-4 eye drops daily; sumatriptan succinate 100 mg tablet 100 mg PO Q2-4H PRN Rx Instructions: do not exceed 2 doses per 24 hrs ondansetron 8 mg tablet,disintegrating 8 mg PO Q12H acetaminophen [Tylenol Extra Strength] 500 mg tablet 1,000 mg PO Q6H PRN naproxen sodium [Aleve] 220 mg capsule 220 mg PO Q12H diphenhydramine HCl [Benadryl] 25 mg capsule 25 mg PO TID PRN loratadine [Claritin] 10 mg tablet 10 mg PO DAILY Culturelle 10 billion cell capsule 1 cap PO DAILY ferrous sulfate 325 mg (65 mg iron) tablet 325 mg PO TID ibuprofen 800 mg tablet 800 mg PO Q6H
[2022-11-15 00:44] VITALS: RESP 18
[2022-11-15] MEDS: Morphine Sulfate 4 MG/ML CARTRIDGE IM (00:44)
--- NOTE | 2022-11-15 01:02 | MHC.EDTECH ---
call out to juan for transport at 0058 to return back to [facility]
== END 2022-11-15 01:58 | disposition home or self-care (01) ==
PROVIDERS: Emergency Provider Emergency Medicine
DX: M25.551 Pain in right hip (principal); I10 Essential (primary) hypertension; Z96.641 Presence of right artificial hip joint; Z79.899 Other long term (current) drug therapy
CPT/HCPCS: 73502; 96372; 99284; J2270

== ENCOUNTER 2022-11-16 22:14 | Emergency (ER) | payer OTHER, SELFPAY ==
--- NOTE | ~2022-11-16 | XR_ITS ---
EXAMINATION: XR HIP, RIGHT CLINICAL INFORMATION: Post reduction COMPARISON: Previous day TECHNIQUE: Single view of the right hip. XR/XR hip RT 1V FINDINGS/IMPRESSION: Successful reduction seen superior right femoral prosthetic dislocation. No fractures. Stably positioned acetabular cup.
--- NOTE | ~2022-11-16 | XR_ITS ---
EXAMINATION: XR HIP, RIGHT CLINICAL INFORMATION: Injury today after recent hip replacement COMPARISON: 11/14/2022 TECHNIQUE: Two views of the right hip. FINDINGS: A right total hip prosthesis is present with new acute dislocation superiorly and anteriorly. No fractures are seen. Hardware is intact XR/XR hip RT w [id number] IMPRESSION: Dislocated right hip prosthesis.
[2022-11-16 22:42] VITALS: BP 113/60; BP 140/60; PULSE 68; RESP 16; TEMP 37.1; O2SAT 98; BMI 25.1
[2022-11-16 22:45] VITALS: BP 113/60; PULSE 68; RESP 16; TEMP 37.1; O2SAT 98
--- NOTE | 2022-11-16 22:46 | PC.NURSE ---
Pt presents to ER via EMS from [facility] in [place]. Pt is A&Ox4, GCS 15, with warm, dry skin. Pt had a right hip replacement two weeks ago. Tonight, pt was kneeling on her bed, reaching upwards to turn her lights off. Pt felt a pop in her hip, followed by 10/10 pain. CSM in tact in the affected extremity. Pt right foot has slight outwards rotation, right hip is more noticeable than the left. Pt has been changed into a vandana, waiting for provider at this time.
--- NOTE | 2022-11-16 23:53 | ED.GENADULT ---
HPI - General Adult General Chief complaint: Extremity Injury, Lower Stated complaint: hip pain post hip surgery Time Seen by Provider: 11/16/22 22:54 Source: patient, EMS, RN notes reviewed and old records reviewed Mode of arrival: EMS Limitations: no limitations History of Present Illness HPI narrative: 61-year-old female with past medical history significant for chronic Lyme disease, anxiety, depression, osteoarthritis presents for evaluation of right hip pain. Patient reports that she had a right hip arthroplasty on 11/01/2022 at [facility] with Dr. Toth. Patient reports that she was ?kneeling on my bed trying to turn the light off when I felt a pop in my right hip. ? She immediately experienced 10/10 pain She followed up with the orthopedic PA earlier today and was told everything was going well Patient denies any injuries. She was given Dilaudid p.o. prior to arrival from her nursing facility Related Data Home Medications Medication Instructions Recorded Confirmed Lactobacillus rhamnosus GG 10 1 cap PO DAILY 10/05/20 billion cell capsule (Culturelle) acetaminophen 500 mg tablet 1,000 mg PO Q6H PRN 10/05/20 (Tylenol Extra Strength) amoxicillin 500 mg capsule 2,000 mg PO .COMPLEX 10/05/20 baclofen 10 mg tablet 10 mg PO DAILY 10/05/20 bisacodyl 5 mg tablet,delayed 5 mg PO BID 10/05/20 release bupropion HCl 300 mg 24 hr tablet, 300 mg PO QAM 10/05/20 extended release clonazepam 2 mg tablet 2 mg PO BID 10/05/20 cyclosporine 0.05 % eye drops in a 1 drp ophthalmic (eye) Q12H 10/05/20 dropperette (Restasis) diphenhydramine HCl 25 mg capsule 25 mg PO TID PRN 10/05/20 (Benadryl) duloxetine 60 mg capsule,delayed 60 mg PO DAILY 10/05/20 release etanercept 50 mg/mL (1 mL) 50 mg subcut QWEEK 10/05/20 subcutaneous syringe (Enbrel) ferrous sulfate 325 mg (65 mg 325 mg PO TID 10/05/20 iron) tablet folic acid 1 mg tablet 1 mg PO DAILY 10/05/20 gabapentin 300 mg capsule 300 mg PO TID 10/05/20 hydroxychloroquine 200 mg tablet 200 mg PO BID 10/05/20 hydroxyzine HCl 25 mg tablet 25 mg PO QID 10/05/20 ibuprofen 800 mg tablet 800 mg PO Q6H 10/05/20 loratadine 10 mg tablet (Claritin) 10 mg PO DAILY 10/05/20 methotrexate 2.5 mg/mL oral PO QWEEK 10/05/20 solution morphine ER 60 mg-naltrexone 2.4 cap PO BEDTIME 10/05/20 mg capsule, extend release, oral only naproxen sodium 220 mg capsule 220 mg PO Q12H 10/05/20 (Aleve) ondansetron 8 mg disintegrating 8 mg PO Q12H 10/05/20 tablet pilocarpine HCl 5 mg tablet 5 mg PO TID 10/05/20 prednisolone acetate (PF) 1 % eye 1 drp ophthalmic (eye) .COMPLEX 10/05/20 drops,suspension propranolol 40 mg/5 mL (8 mg/mL) 40 mg PO TID 10/05/20 oral solution sumatriptan succinate 100 mg tablet 100 mg PO Q2-4H PRN 10/05/20 thyroid (pork) 60 mg tablet 60 mg PO DAILY 10/05/20 ([place] Thyroid) zolpidem 10 mg tablet 10 mg PO BEDTIME PRN 10/05/20 Allergies Allergy/AdvReac Type Severity Reaction Status Date / Time Sulfa (Sulfonamide Allergy Severe HIVES Verified 11/15/22 00:44 Antibiotics) [SULFA (SULFONAMIDE ANTIBIOTICS)] influenza virus vaccine, Allergy Unknown LUMP X 1 HR Verified 11/15/22 00:44 specific [FLU VACCINE] latex [LATEX] Allergy Unknown UNKNOWN Verified 11/15/22 00:44 mold Allergy difficulty Verified 11/15/22 00:44 breathing Review of Systems Musculoskeletal: Musculoskeletal: Reports arthralgias, Reports joint swelling, Reports limited range of motion and Reports loss of height [facility] Past Medical History Medical History ADHD AV heart block Brain bleed Cervical spondylolysis Chronic fatigue Chronic pain Corneal disease Degenerative disc disease Dry eye syndrome Electrolyte imbalance Fibromyalgia Gallstone HLA B27 (HLA B27 positive) Hypertension Immunosuppressed status Insomnia Irregular heartbeat Lyme carditis Lyme disease Migraines Mitral valve prolapse Myopia Neuritis Neurobartonellosis Optic neuritis Osteoarthritis Osteoporosis Palpitations Photophobia Psoriasis PTSD (post-traumatic stress disorder) Rheumatoid arthritis Seborrheic dermatitis Seizure disorder Sinus bradycardia Syncope TIA (transient ischemic attack) TMJ (dislocation of temporomandibular joint) Traumatic brain injury Social History Social History Alcohol intake: never Smoked in Last 30 Days: No Use of substances other than those prescribed or required for medical reasons: No Advance Directives: No Advance Directives Information Provided: Yes Current occupational status: retired Current occupation: Right Physical Exam ED Vital Signs: Vital Signs - 24 hr 11/16/22 22:42 11/16/22 22:45 11/17/22 00:00 Temperature 98.7 F 98.7 F Pulse Rate 68 68 70 Respiratory Rate 16 16 10 L Blood Pressure 113/60 113/60 123/62 Pulse Oximetry 98 98 97 Oxygen Delivery Method Room Air Room Air Room Air Oxygen Flow Rate 11/17/22 00:29 11/17/22 00:35 11/17/22 00:40 Temperature Pulse Rate 71 70 71 Respiratory Rate 12 10 L 16 Blood Pressure 124/69 118/65 Pulse Oximetry 98 95 95 Oxygen Delivery Method Oxygen Flow Rate 11/17/22 00:41 11/17/22 00:25 11/17/22 00:45 Temperature Pulse Rate 71 71 70 Respiratory Rate 16 20 17 Blood Pressure 118/69 118/69 116/61 Pulse Oximetry 97 98 99 Oxygen Delivery Method Nasal Cannula Nasal Cannula Oxygen Flow Rate 2 2 11/17/22 00:50 11/17/22 00:55 11/17/22 01:10 Temperature Pulse Rate 70 69 71 Respiratory Rate 12 16 11 L Blood Pressure 109/62 123/55 L 119/63 Pulse Oximetry 100 99 97 Oxygen Delivery Method Nasal Cannula Nasal Cannula Room Air Oxygen Flow Rate 2 2 BMI result Body Mass Index 25.1 Const General: healthy appearing, comfortable, no acute distress, alert and awake Nutritional Appearance: well nourished Orientation/consciousness: patient oriented x3 Eyes Eyelids: Yes eyelids normal Conjunctivae: conjunctivae normal Sclerae: sclerae normal Corneas: corneas normal Pupils: Equal, round and reactive pupils present EOM: EOMs intact bilaterally Resp Effort & Inspection: normal respiratory effort, able to speak in complete sentences, no audible wheezes and not labored Auscultation: clear to auscultation bilaterally Cardio Rate: regular rate Rhythm: regular rhythm Skin General skin exam: no rashes or lesions noted and elasticity normal Neuro General: patient oriented x3 Cranial nerves: Yes CN's II-XII intact bilaterally, Yes Equal, round and reactive pupils present and Yes Bilaterally intact EOM present Cognition (Neuro): normal cognition Extrem Other: Surgical scar appears to be healing well, no erythema, no drainage from the wound, no dehiscence. There is slight shortening and external rotation of the right hip. The patient is tender palpation of the right hip Medications Administered Discontinued Medications Generic Name Dose Route Start Last Admin Trade Name Freq PRN Reason Stop Dose Admin Sodium Chloride 1,000 mls @ 999 mls/hr 11/16/22 23:45 11/17/22 01:16 Ns IV 11/17/22 00:45 Infused .Q1H1M ANGELINA Infusion Morphine Sulfate 6 mg 11/16/22 23:51 11/17/22 00:11 Morphine Sulfate 10 Mg/Ml Cartridge IVPUSH 11/16/22 23:52 6 mg ONCE ONE Administration Protocol Ondansetron HCl 4 mg 11/16/22 23:51 11/17/22 00:11 Ondansetron Hcl 4 Mg/2 Ml Vial IVPUSH 11/16/22 23:52 4 mg ONCE ONE Administration Propofol 200 mg 11/16/22 23:35 11/17/22 00:25 Propofol 200 Mg/20 Ml Vial IVPUSH 11/16/22 23:36 75 mg ONCE ONE Administration Procedures Orthopedic Joint Reduction Joint #1: Time Out Performed: Yes Side: right Joint Reduction Location: hip Analgesia: procedural sedation Technique used: traction/counter-traction Post-reduction neuro exam: intact and no change Post-reduction vascular: intact and no change Post Reduction X-Ray Obtained: Yes Post Reduction X-Ray Results: reduced Splint Applied: No Patient Tolerated Procedure: well and no complications Medical Decision Making Medical Decision Making MDM Narrative: 61-year-old female with positive right hip dislocation. Patient medicated with morphine IV a she prefers this to Dilaudid. Will at times closed internal reduction with conscious sedation. Differential Diagnosis Right hip dislocation Right hip fracture Right hip sprain Postop pain Discharge Plan Discharge Clinical Impression: Anterior dislocation of right hip Patient Disposition: [facility] Instructions: Hip Dislocation (ED) Additional Instructions: Call your orthopedic surgeon, Dr. Toth tomorrow morning to explain to him that you had dislocated your right hip. Make sure you tell him it was an anterior dislocation It was internally reduced in the ER You should avoid any physical therapy until speaking with your orthopedic doctor tomorrow You may walk using her walker very carefully to the bathroom and back Do not walk on any uneven surfaces or kneel on uneven surfaces Prescriptions: No Action thyroid (pork) [[place] Thyroid] 60 mg tablet 60 mg PO DAILY baclofen 10 mg tablet 10 mg PO DAILY bisacodyl 5 mg tablet,delayed release (DR/EC) 5 mg PO BID bupropion HCl 300 mg tablet extended release 24 hr 300 mg PO QAM clonazepam 2 mg tablet 2 mg PO BID duloxetine 60 mg capsule,delayed release(DR/EC) 60 mg PO DAILY folic acid 1 mg tablet 1 mg PO DAILY gabapentin 300 mg capsule 300 mg PO TID hydroxychloroquine 200 mg tablet 200 mg PO BID morphine-naltrexone 60-2.4 mg capsule,oral only,ext.rel aissatou PO BEDTIME methotrexate 2.5 mg/mL solution PO QWEEK pilocarpine HCl 5 mg tablet 5 mg PO TID propranolol 40 mg/5 mL (8 mg/mL) solution 40 mg PO TID Restasis 0.05 % dropperette 1 drp ophthalmic (eye) Q12H zolpidem 10 mg tablet 10 mg PO BEDTIME PRN Enbrel 50 mg/mL (1 mL) syringe 50 mg subcut QWEEK amoxicillin 500 mg capsule 2,000 mg PO .COMPLEX Rx Instructions: 2,000 mg PO 4 Hours prior to dental work; hydroxyzine HCl 25 mg tablet 25 mg PO QID Rx Instructions: Take 4x daily when rash flairs up prednisolone acetate (PF) 1 % drops,suspension 1 drp ophthalmic (eye) .COMPLEX Rx Instructions: 1 drp ophthalmic (eye) 1-4 eye drops daily; sumatriptan succinate 100 mg tablet 100 mg PO Q2-4H PRN Rx Instructions: do not exceed 2 doses per 24 hrs ondansetron 8 mg tablet,disintegrating 8 mg PO Q12H acetaminophen [Tylenol Extra Strength] 500 mg tablet 1,000 mg PO Q6H PRN naproxen sodium [Aleve] 220 mg capsule 220 mg PO Q12H diphenhydramine HCl [Benadryl] 25 mg capsule 25 mg PO TID PRN loratadine [Claritin] 10 mg tablet 10 mg PO DAILY Culturelle 10 billion cell capsule 1 cap PO DAILY ferrous sulfate 325 mg (65 mg iron) tablet 325 mg PO TID ibuprofen 800 mg tablet 800 mg PO Q6H
[2022-11-17] VITALS (10 sets, daily range): BP systolic 109–124; BP diastolic 55–69; PULSE 69–71; RESP 10–20; O2SAT 95–100
[2022-11-17] MEDS: Morphine Sulfate 10 MG/ML CARTRIDGE 6 MG IVPUSH (00:11)
[2022-11-17] MEDS: ondansetron HCL 4 MG/2 ML VIAL IVPUSH (00:11)
[2022-11-17] MEDS: 0.9 % Sodium Chloride 1,000 ML 999 ML IV (00:11)
[2022-11-17] MEDS: propofoL 200 MG/20 ML VIAL IVPUSH (00:25)
--- NOTE | 2022-11-17 00:28 | PC.NURSE ---
Pt resting in bed. 20g IV inserted in the left wrist with fluids running. Pt placed on cardiac catheterization technologist, capnography, 2 LPM O2. MD [email or web address], respiratory is at the bedside. Pt A&Ox4, GCS 15.
--- NOTE | 2022-11-17 00:33 | PC.NURSE ---
Propofol administered at 00:35.
--- NOTE | 2022-11-17 00:38 | PC.NURSE ---
25mg Propofol administered at 00:36. Procedure ended at 00:39. Pedal pulses in tact Pt is unresponsive to name, did react to pain throughout procedure, groaning. Pt is now asleep. Vital signs stable, pt skin pink, cool, and dry.
--- NOTE | 2022-11-17 00:47 | PC.NURSE ---
50mg Propofol administered at 00:[address] Montanez at bedside, XIOMARA Jim at bedside.
--- NOTE | 2022-11-17 00:52 | PC.NURSE ---
Pt beginnign to wake up, reports 5/10 pain. Pt waiting for xray at this time to confirm reduction
--- NOTE | 2022-11-17 01:13 | PC.NURSE ---
Pt sitting upright in semifowlers. Pt is sipping water with a straw and is able to swallow appropriately. Pt is Alert and oriented at this time, has full control of motor skills. Vital signs have remained stable.
--- NOTE | 2022-11-17 01:37 | MHC.EDTECH ---
call out to [place] for transport at 0134, returning back to [facility]
--- NOTE | 2022-11-17 02:12 | PC.NURSE ---
Spoke with Carl from [facility] to give report. Pt is on EMS stretcher, ready for discharge. IV removed.
== END 2022-11-17 02:13 | disposition skilled nursing facility (03) ==
PROVIDERS: Emergency Provider Emergency Medicine Emergency Medical Services
DX: T84.020A Dislocation of internal right hip prosthesis, initial encounter (principal); X50.9XXA Other and unspecified overexertion or strenuous movements or postures, initial encounter; Y82.8 Other medical devices associated with adverse incidents; M25.551 Pain in right hip; Z96.641 Presence of right artificial hip joint
CPT/HCPCS: 27266; 73501; 73502; 96361; 96374; 96375; 99284; 99285; J2270; J2405

== ENCOUNTER 2022-11-18 05:05 | Emergency (ER) | payer OTHER, SELFPAY ==
[2022-11-18] VITALS (13 sets, daily range): BP systolic 117–149; BP diastolic 56–90; PULSE 57–69; RESP 7–18; TEMP 36.5; O2SAT 92–98; BMI 25.1
--- NOTE | ~2022-11-18 | XR_ITS ---
EXAMINATION: XR HIP, RIGHT CLINICAL INFORMATION: Status post right hip reduction. COMPARISON: Right hip radiographs dated 11/16/2022 and from earlier today. TECHNIQUE: Two views of the right hip. XR/XR hip RT min 2V FINDINGS/IMPRESSION: Interval reduction of the right hip prosthesis showing good anatomic alignment.
--- NOTE | ~2022-11-18 | XR_ITS ---
EXAMINATION: XR HIP, RIGHT CLINICAL INFORMATION: Right hip pain. COMPARISON: Multiple priors, most recent right hip radiographs dated 11/17/2022. TECHNIQUE: AP view of the pelvis as well as AP and crosstable lateral views of the right hip. FINDINGS: Anterior dislocation of the femoral component with the posterior margin of the femoral head abutting the anterosuperior aspect of the acetabular cup. No hardware fracture. Chronic deformity of the proximal right femur, unchanged. No concerning lytic or blastic osseous lesion. XR/XR hip RT w PEL1V IMPRESSION: Anterior dislocation of the femoral head.
[2022-11-18 05:50] LABS: MANUAL DIFF FLAG NO
[2022-11-18 05:51] LABS: Basophils Percent Auto 0.4 % (0-2); Eosinophils Absolute Auto 0.2 X10*3/uL (0.0-0.4); Eosinophils Percent Auto 3.2 % (0-4); Hematocrit 23.9 % (37.0-47.0); Hemoglobin 7.2 g/dl (12.0-16.0); Imm Gran Abs Auto 0.02 X10*3/uL (0.00-0.03); Imm Gran Pct Auto 0.4 % (0.0-0.4); Lymphocytes Absolute Auto 1.1 X10*3/uL (1.2-4.9); Lymphocytes Percent Auto 18.7 % (20-40); Mean Corpuscular HGB Conc 30.1 g/dl (31.0-35.0); Mean Corpuscular Hemoglobin 31.3 pg (27.0-33.0); Mean Corpuscular Volume 103.9 fL (80.0-98.0); Mean Platelet Volume 9.3 fL (9.4-12.3); Monocytes Absolute Auto 0.6 X10*3/uL (0.1-1.2); Neutrophils Absolute Auto 3.9 x10*3/uL (2.0-8.3); Neutrophils Percent Auto 67.3 % (45-73); Platelet Count 360 X10*3/uL (160-400); Red Cell Distribution Width 16.3 % (11.0-16.0); White Blood Count 5.7 X10*3/uL (4.8-10.8)
[2022-11-18 07:01] LABS: Alanine Aminotransferase 8 U/L (0-31); Albumin Level 3.1 g/dL (3.5-5.0); Alkaline Phosphatase 141 U/L (39-117); Anion Gap 10 (12-20); Aspartate Amino Transferase 14 U/L (5-31); Bilirubin Total 0.8 mg/dL (0.0-1.0); Blood Urea Nitrogen 10 mg/dL (9-16); Calcium 8.5 mg/dL (8.4-10.2); Carbon Dioxide 27 mmol/L (22-29); Chloride 106 mmol/L (96-108); Creatinine Clr Calc Pharmacy 85.9; Estimated Glomerular Filt Rate > 60; Glucose Random 88 mg/dL (60-115); Potassium 4.1 mmol/L (3.3-5.1); Sodium 139 mmol/L (135-145); Total Protein 5.2 g/dL (6.5-8.0)
--- NOTE | 2022-11-18 07:08 | PC.NURSE ---
Resumed care of patient this morning, she is oriented in bed this morning, complaining of R hip pain. Pt being brought to xray at this time, no further orders placed at this time.
--- NOTE | 2022-11-18 07:29 | ED_ITS ---
HPI - Extremity Injury (Lower) General Chief Complaint: Extremity Injury, Lower Stated Complaint: RT side groin pain Time Seen by Provider: 11/18/22 06:42 Source: patient Mode of arrival: EMS Limitations: no limitations History of Present Illness HPI Narrative: 61-year-old female who presents emergency department for evaluation right hip pain that occurred when she got out of bed to walk to the bathroom. The patient states that she had are right hip the surgery which a reconstruction on 11/01/2022. This surgery was done at [facility]. She states that she has been in rehab since getting out of [facility]. The patient states that several days prior she was kneeling on her bed to turn on a light when she dislocated her hip. She was seen here in the emergency department on 11/15/2022 for right hip pain and had a negative workup. She returned on 11/16/2022 with a right hip pain and was found to have a hip dislocation. She had procedural sedation with propofol and her hip was reduced here in the emergency department. Patient states that she was supposed to be on bed rest but no one was helping her to go to the bathroom so she got up and tried to walk to the bathroom and injured her hip again. The patient was then sent to the emergency department for evaluation of right hip pain to rule out possible dislocation. Nursing notes state that the nursing facility also re quested a evaluation by our care team since the patient has been noncompliant. Related Data Home Medications Medication Instructions Recorded Confirmed Lactobacillus rhamnosus GG 10 1 cap PO DAILY 10/05/20 billion cell capsule (Culturelle) acetaminophen 500 mg tablet 1,000 mg PO Q6H PRN 10/05/20 (Tylenol Extra Strength) amoxicillin 500 mg capsule 2,000 mg PO .COMPLEX 10/05/20 baclofen 10 mg tablet 10 mg PO DAILY 10/05/20 bisacodyl 5 mg tablet,delayed 5 mg PO BID 10/05/20 release bupropion HCl 300 mg 24 hr tablet, 300 mg PO QAM 10/05/20 extended release clonazepam 2 mg tablet 2 mg PO BID 10/05/20 cyclosporine 0.05 % eye drops in a 1 drp ophthalmic (eye) Q12H 10/05/20 dropperette (Restasis) diphenhydramine HCl 25 mg capsule 25 mg PO TID PRN 10/05/20 (Benadryl) duloxetine 60 mg capsule,delayed 60 mg PO DAILY 10/05/20 release etanercept 50 mg/mL (1 mL) 50 mg subcut QWEEK 10/05/20 subcutaneous syringe (Enbrel) ferrous sulfate 325 mg (65 mg 325 mg PO TID 10/05/20 iron) tablet folic acid 1 mg tablet 1 mg PO DAILY 10/05/20 gabapentin 300 mg capsule 300 mg PO TID 10/05/20 hydroxychloroquine 200 mg tablet 200 mg PO BID 10/05/20 hydroxyzine HCl 25 mg tablet 25 mg PO QID 10/05/20 ibuprofen 800 mg tablet 800 mg PO Q6H 10/05/20 loratadine 10 mg tablet (Claritin) 10 mg PO DAILY 10/05/20 methotrexate 2.5 mg/mL oral PO QWEEK 10/05/20 solution morphine ER 60 mg-naltrexone 2.4 cap PO BEDTIME 10/05/20 mg capsule, extend release, oral only naproxen sodium 220 mg capsule 220 mg PO Q12H 10/05/20 (Aleve) ondansetron 8 mg disintegrating 8 mg PO Q12H 10/05/20 tablet pilocarpine HCl 5 mg tablet 5 mg PO TID 10/05/20 prednisolone acetate (PF) 1 % eye 1 drp ophthalmic (eye) .COMPLEX 10/05/20 drops,suspension propranolol 40 mg/5 mL (8 mg/mL) 40 mg PO TID 10/05/20 oral solution sumatriptan succinate 100 mg tablet 100 mg PO Q2-4H PRN 10/05/20 thyroid (pork) 60 mg tablet 60 mg PO DAILY 10/05/20 ([place] Thyroid) zolpidem 10 mg tablet 10 mg PO BEDTIME PRN 10/05/20 Allergies Allergy/AdvReac Type Severity Reaction Status Date / Time Sulfa (Sulfonamide Allergy Severe HIVES Verified 11/15/22 00:44 Antibiotics) [SULFA (SULFONAMIDE ANTIBIOTICS)] influenza virus vaccine, Allergy Unknown LUMP X 1 HR Verified 11/15/22 00:44 specific [FLU VACCINE] latex [LATEX] Allergy Unknown UNKNOWN Verified 11/15/22 00:44 mold Allergy difficulty Verified 11/15/22 00:44 breathing Review of Systems Review of Systems: Yes all other systems are reviewed and are negative [facility] Past Medical History [facility] Narrative: Social history: The patient is a resident of a longterm facility. She denied tobacco, alcohol and drug use. Medical History ADHD AV heart block Brain bleed Cervical spondylolysis Chronic fatigue Chronic pain Corneal disease Degenerative disc disease Dry eye syndrome Electrolyte imbalance Fibromyalgia [place] HLA B27 (HLA B27 positive) Hypertension Immunosuppressed status Insomnia Irregular heartbeat Lyme carditis Lyme disease Migraines Mitral valve prolapse Myopia Neuritis Neurobartonellosis Optic neuritis Osteoarthritis Osteoporosis Palpitations Photophobia Psoriasis PTSD (post-traumatic stress disorder) Rheumatoid arthritis Seborrheic dermatitis Seizure disorder Sinus bradycardia Syncope TIA (transient ischemic attack) TMJ (dislocation of temporomandibular joint) Traumatic brain injury Social History Social History Alcohol intake: former Smoked in Last 30 Days: No Use of substances other than those prescribed or required for medical reasons: No Advance Directives: No Advance Directives Information Provided: Yes Current occupational status: retired Current occupation: Right Physical Exam Vital Signs: Vital Signs: Last Vital Signs Temp 97.7 F 11/18/22 08:07 Pulse 62 11/18/22 12:29 Resp 13 11/18/22 12:29 BP 132/66 11/18/22 12:29 Pulse Ox 98 11/18/22 12:29 O2 Del Method Nasal Cannula 11/18/22 12:29 O2 Flow Rate 3 11/18/22 12:29 Oxygen Flow Rate 4 11/18/22 09:01 BMI result Body Mass Index 25.1 Const: Other: Awake, alert, female patient, appears to be in distress secondary to her pain, she answers all questions appropriately HEENT: Head: Yes normal to inspection, Yes normocephalic and Yes atraumatic Ears: external ears normal General nose exam: Normal external nose present Face and sinus: Yes normal facial exam Mouth: Normal oral and palatal mucosa present Throat: Yes posterior oropharynx normal Eyes: General: appearance normal, both eyes and all related structures Pupils: Equal, round and reactive pupils present Neck: Neck: Yes normal visual inspection, Yes no lymphadenopathy, Yes trachea midline and Yes supple Chest: Chest palpation & inspection: normal inspection of the chest and normal palpation of entire chest wall Resp: Effort & Inspection: normal respiratory effort and able to speak in complete sentences Auscultation: clear to auscultation bilaterally Cardio: Rate: regular rate Rhythm: regular rhythm Heart sounds: S1 normal heart sound present, S2 normal heart sound present and no murmurs GI: Inspection: Yes normal to inspection Palpation (GI): Soft to palpation, nontender and no guarding Auscultation: normal bowel sounds : General: Yes no CVA tenderness Back/Spine/Pelvis: Back: no CVA tenderness Skin: General skin exam: no rashes or lesions noted Neuro: Cranial nerves: Yes CN's II-XII intact bilaterally and Yes Equal, round and reactive pupils present Cognition (Neuro): normal cognition Motor exam (neuro): 5/5 motor strength present throughout (The except for right hip which she is unable to move secondary to pain) Extrem: Other: Patient's right hip surgical scar is intact with no evidence of erythema increased warmth. With minimal movement of her right hip she has severe pain. Patient's right lower extremities neurovascular intact Psych: Appearance: grossly normal Speech and movement: Normal speech and movement present Affect: normal affect Attitude: cooperative Thought process: Normal thought process present Thought content: Normal thought content present Medications Administered Discontinued Medications Generic Name Dose Route Start Last Admin Trade Name Freq PRN Reason Stop Dose Admin Cyanocobalamin 1,000 mcg 11/18/22 08:28 11/18/22 11:39 Cyanocobalamin (Vitamin B-12) 1,000 Mcg/Ml Vial IM 11/18/22 08:29 1,000 mcg ONCE ONE Administration Folic Acid 1 mg 11/18/22 08:28 11/18/22 11:38 Folic Acid 1 Mg Tablet PO 11/18/22 08:29 1 mg ONCE ONE Administration Hydromorphone HCl 1 mg 11/18/22 07:31 11/18/22 07:48 Hydromorphone Hcl 1 Mg/Ml Syringe IVPUSH 11/18/22 07:32 1 mg ONCE STA Administration Protocol Propofol 200 mg 11/18/22 07:33 11/18/22 08:29 Propofol 200 Mg/20 Ml Vial IVPUSH 11/18/22 07:34 80 mg ONCE ONE Administration Medical Decision Making Medical Decision Making MDM Narrative: 61-year-old female who had a right total hip arthroplasty 11/02/2019 through at [facility], seen here on 11/15/2022 for right hip pain and again on 11/16/2022 for right hip pain secondary to anterior dislocation which was reduced in the emergency department. Patient was supposed to be on bed rest but got up to use the bathroom and injured her right hip. Physical examination did reveal significant pain with minimal movement of her right hip. I ordered a laboratory evaluation to include CBC, CMP, PT/INR, PTT, type and screen. Right hip that x-ray was also ordered 1256: My interpretation patient's laboratory evaluation as follows: Normal WBC 5700. Macrocytic anemia with an H&H of 7.2 and 23.9 with an MCV of 103.9. Patient has had similar low values in the past with an H&H of 8.5 and 25.8 11/09/2019. PT/INR and PTT were normal. Patient's iron studies revealed an low TIBC of 200 but a normal iron, iron saturation and unsaturated iron binding. B12 and folate were normal. X-ray of the right hip was interpreted by me as anterior dislocation of the femoral head. Postreduction films were interpreted me as reduction of the right hip prosthesis with good anatomic alignment The patient was given Dilaudid 1 mg IV for pain. She was given procedural sedation with propofol 80 mg IV and her right hip was easily reduced using the Captain Carlos maneuver. Patient tolerated the procedure well. We do not have a hip abduction pillow to send her back to the nursing facility with. Therefore pillow was placed between her legs and I applied to 6 in Neftaly wraps to keep her legs together Patient was seen by the care team and the patient is not suicidal, homicidal and is competent to make decisions. The patient will be discharged back to her care facility. I did give the patient a B12 shot and folate orally. The patient's macrocytic anemia will need to further evaluated by her longterm facility. Differential Diagnosis Differential Diagnoses: The differential diagnosis associated with the presentation includes Differential diagnosis includes was not limited to anterior hip dislocation, posterior hip dislocation, femoral neck fracture, pelvic fracture, muscle skeletal sprain Admission/Observation Consideration of admission/observation: Escalation of care including admission/observation considered Lab Data [facility] Lab Attestation statement: I reviewed the patient's lab results. See [facility] 11/18/22 05:44 11/18/22 06:37 Labs: Lab Results 11/18/22 11/18/22 11/18/22 Range/Units 05:44 06:37 07:59 WBC 5.7 (4.8-10.8) X10*3/uL RBC 2.30 L D (4.20-5.50) X10*6/uL Hgb 7.2 L D (12.0-16.0) g/dl Hct 23.9 L D (37.0-47.0) % MCV 103.9 H (80.0-98.0) fL MCH 31.3 (27.0-33.0) pg MCHC 30.1 L (31.0-35.0) g/dl RDW 16.3 H (11.0-16.0) % Plt Count 360 D (160-400) X10*3/uL MPV 9.3 L (9.4-12.3) fL Immature Gran % (Auto) 0.4 (0.0-0.4) % Neut % (Auto) 67.3 (45-73) % Lymph % (Auto) 18.7 L (20-40) % [place] % (Auto) 10.0 (2-11) % Eos % (Auto) 3.2 (0-4) % Baso % (Auto) 0.4 (0-2) % Lymph # (Auto) 1.1 L (1.2-4.9) X10*3/uL [place] # (Auto) 0.6 (0.1-1.2) X10*3/uL Eos # (Auto) 0.2 (0.0-0.4) X10*3/uL Baso # (Auto) 0.0 (0.0-0.2) X10*3/uL Abs Immat Gran (auto) 0.02 (0.00-0.03) X10*3/uL Absolute Neuts (auto) 3.9 (2.0-8.3) x10*3/uL Absolute Nucleated RBC 0.000 (0.0-0.012) X10*3/uL Nucleated RBC % (auto) 0.0 (0.0-0.2) /100WBC Sodium 139 (135-145) mmol/L Potassium 4.1 (3.3-5.1) mmol/L Chloride 106 (96-108) mmol/L Carbon Dioxide 27 (22-29) mmol/L Anion Gap 10 L (12-20) BUN 10 (9-16) mg/dL Creatinine 0.66 (0.5-1.4) mg/dL Estim Creat Clear Calc 85.9 Estimated GFR > 60 Random Glucose 88 (60-115) mg/dL Calcium 8.5 D (8.4-10.2) mg/dL Iron 44 (30-160) mcg/dL TIBC 200 L (228-428) mcg/dL % Saturation 22 (15-50) % Unsat Iron Binding 156 ug/dL Total Bilirubin 0.8 (0.0-1.0) mg/dL AST 14 (5-31) U/L ALT 8 (0-31) U/L Alkaline Phosphatase 141 H (39-117) U/L Total Protein 5.2 L (6.5-8.0) g/dL Albumin 3.1 L (3.5-5.0) g/dL Vitamin B12 554 (200-900) pg/mL Folate 18.8 (> or = 4.0) ng/mL Blood Type Antibody Screen 11/18/22 Range/Units 07:59 WBC (4.8-10.8) X10*3/uL RBC (4.20-5.50) X10*6/uL Hgb (12.0-16.0) g/dl Hct (37.0-47.0) % MCV (80.0-98.0) fL MCH (27.0-33.0) pg MCHC (31.0-35.0) g/dl RDW (11.0-16.0) % Plt Count (160-400) X10*3/uL MPV (9.4-12.3) fL Immature Gran % (Auto) (0.0-0.4) % Neut % (Auto) (45-73) % Lymph % (Auto) (20-40) % [place] % (Auto) (2-11) % Eos % (Auto) (0-4) % Baso % (Auto) (0-2) % Lymph # (Auto) (1.2-4.9) X10*3/uL [place] # (Auto) (0.1-1.2) X10*3/uL Eos # (Auto) (0.0-0.4) X10*3/uL Baso # (Auto) (0.0-0.2) X10*3/uL Abs Immat Gran (auto) (0.00-0.03) X10*3/uL Absolute Neuts (auto) (2.0-8.3) x10*3/uL Absolute Nucleated RBC (0.0-0.012) X10*3/uL Nucleated RBC % (auto) (0.0-0.2) /100WBC Sodium (135-145) mmol/L Potassium (3.3-5.1) mmol/L Chloride (96-108) mmol/L Carbon Dioxide (22-29) mmol/L Anion Gap (12-20) BUN (9-16) mg/dL Creatinine (0.5-1.4) mg/dL Estim Creat Clear Calc Estimated GFR Random Glucose (60-115) mg/dL Calcium (8.4-10.2) mg/dL Iron (30-160) mcg/dL TIBC (228-428) mcg/dL % Saturation (15-50) % Unsat Iron Binding ug/dL Total Bilirubin (0.0-1.0) mg/dL AST (5-31) U/L ALT (0-31) U/L Alkaline Phosphatase (39-117) U/L Total Protein (6.5-8.0) g/dL Albumin (3.5-5.0) g/dL Vitamin B12 (200-900) pg/mL Folate (> or = 4.0) ng/mL Blood Type O Positive Antibody Screen NEGATIVE Radiology Impression Radiologist Impression: XR hip RT w PEL1V IMPRESSION: Anterior dislocation of the femoral head. Dictated By:Steven Bauer MD XR hip RT min 2V FINDINGS/IMPRESSION: Interval reduction of the right hip prosthesis showing good anatomic alignment. Dictated By:Cristo Matos MD Discharge Plan Discharge Clinical Impression: Anterior dislocation of right hip, History of hemiarthroplasty of right hip, Anemia, macrocytic Patient Disposition: Xfer [facility] Additional Instructions: You dislocated right hip You were given procedural sedation with propofol and your right hip was low back in place here in the emergency department. You will need a hip abduction pillow while you are sitting and lying in bed to keep your hip from dislocating again. We do not have an abduction pillow to send you home with so I put a pillow between her legs and placed Neftaly wraps around her legs. Your facility will need to get you this device to keep your hip from dislocating. You do have a macrocytic anemia which is chronic-she had in the past. Your iron studies, folate and B12 were normal. I did give you a B12 shot and folate orally. You should take folate daily. The facility that your at will need to further evaluate your anemia. Follow-up with your orthopedic doctor. You were seen by our care team and they think that you are not suicidal, homicidal and you are competent therefore you can return to your care facility f or further treatment. Follow-up with your doctor in 2 days. Please return to the emergency department if your symptoms get worse or if you develop any symptoms that are concerning to you. Prescriptions: No Action thyroid (pork) [[place] Thyroid] 60 mg tablet 60 mg PO DAILY baclofen 10 mg tablet 10 mg PO DAILY bisacodyl 5 mg tablet,delayed release (DR/EC) 5 mg PO BID bupropion HCl 300 mg tablet extended release 24 hr 300 mg PO QAM clonazepam 2 mg tablet 2 mg PO BID duloxetine 60 mg capsule,delayed release(DR/EC) 60 mg PO DAILY folic acid 1 mg tablet 1 mg PO DAILY gabapentin 300 mg capsule 300 mg PO TID hydroxychloroquine 200 mg tablet 200 mg PO BID morphine-naltrexone 60-2.4 mg capsule,oral only,ext.rel aissatou PO BEDTIME methotrexate 2.5 mg/mL solution PO QWEEK pilocarpine HCl 5 mg tablet 5 mg PO TID propranolol 40 mg/5 mL (8 mg/mL) solution 40 mg PO TID Restasis 0.05 % dropperette 1 drp ophthalmic (eye) Q12H zolpidem 10 mg tablet 10 mg PO BEDTIME PRN Enbrel 50 mg/mL (1 mL) syringe 50 mg subcut QWEEK amoxicillin 500 mg capsule 2,000 mg PO .COMPLEX Rx Instructions: 2,000 mg PO 4 Hours prior to dental work; hydroxyzine HCl 25 mg tablet 25 mg PO QID Rx Instructions: Take 4x daily when rash flairs up prednisolone acetate (PF) 1 % drops,suspension 1 drp ophthalmic (eye) .COMPLEX Rx Instructions: 1 drp ophthalmic (eye) 1-4 eye drops daily; sumatriptan succinate 100 mg tablet 100 mg PO Q2-4H PRN Rx Instructions: do not exceed 2 doses per 24 hrs ondansetron 8 mg tablet,disintegrating 8 mg PO Q12H acetaminophen [Tylenol Extra Strength] 500 mg tablet 1,000 mg PO Q6H PRN naproxen sodium [Aleve] 220 mg capsule 220 mg PO Q12H diphenhydramine HCl [Benadryl] 25 mg capsule 25 mg PO TID PRN loratadine [Claritin] 10 mg tablet 10 mg PO DAILY Culturelle 10 billion cell capsule 1 cap PO DAILY ferrous sulfate 325 mg (65 mg iron) tablet 325 mg PO TID ibuprofen 800 mg tablet 800 mg PO Q6H
[2022-11-18] MEDS: HYDROmorphone HCl 1 MG/ML SYRINGE IVPUSH (07:48)
[2022-11-18] MEDS: propofoL 200 MG/20 ML VIAL IVPUSH (08:29)
[2022-11-18 08:58] LABS: Iron 44 mcg/dL (30-160); Percent Iron Saturation 22 % (15-50); Total Iron Binding Capacity 200 mcg/dL (228-428); Unsaturated Iron Binding 156 ug/dL
[2022-11-18 09:26] LABS: Folate 18.8 ng/mL (> or = 4.0); Vitamin B12 554 pg/mL (200-900)
--- NOTE | 2022-11-18 11:32 | PC.NURSE ---
Pt received moderate sedation this AM to get her right hip back into place. MD.CAREER AND TECHNOLOGY EDUCATION TEACHER/resp, and this write at bedside, pt received propofol, all vitals in documentation, pt tolerated procedure well. hip wrapped by and tech. All labs obtained. Care team at bedside currently talking with patient. Pt has returned to baseline cognition at this time.
[2022-11-18] MEDS: Folic Acid 1 MG TABLET PO (11:38)
[2022-11-18] MEDS: Cyanocobalamin (Vitamin B-12) 1,000 MCG/ML VIAL 1000 MCG IM (11:39)
--- NOTE | 2022-11-18 12:16 | MHC.CARE ---
Pt was seen by CARE team at the request of SNF due to pt?s noncompliance with treatment. Pt reports she was not aware she was not supposed to ambulate unassisted. She states it was 4:30am and she needed to use the restroom. Pt denies SI/HI/AVH. Pt has no history of inpatient hospitalizations. Pt reports sometimes she is ?sad? but has significant protective factors in the community. Pt reports her neighbor checks in on her daily and she has morning routine with her mother they practice daily. Pt also reached out to [facility] prior to SNF admission and will be receiving home health services upon d/c from SNF. CARE team contacted SNF and spoke to monorail charger operator, Vivian who reports pt was transported to [facility] for medical clearance. She has no known MH concerns about pt and she is expecting pt to return to SNF today.
--- NOTE | 2022-11-18 13:21 | PC.NURSE ---
Pt currently resting comfortably in bed, stable on RA, no concerns noted at this time. awaiting dispo
--- NOTE | 2022-11-18 13:41 | PC.NURSE ---
Pt d/c in, front office clerk alerted to book transport back to rehab facility
== END 2022-11-18 15:54 ==
PROVIDERS: Emergency Provider Emergency Medicine Emergency Medical Services
DX: M24.451 Recurrent dislocation, right hip (principal); D53.9 Nutritional anemia, unspecified; Z96.641 Presence of right artificial hip joint
CPT/HCPCS: 27266; 36415; 73502; 80053; 82607; 82746; 83540; 85025; 86850; 86900; 86901; 96372; 96374; 99152; 99284; 99285; J1170